=== PATIENT | male | born 1950 | race Caucasian/White ===

== ENCOUNTER 2020-07-13 15:14 | Emergency (ER) | payer OTHER, SELFPAY ==
[~2020-07-13] VITALS: Ht 182.9 cm; Wt 95.3 kg
[2020-07-13 15:58] VITALS: BP 99/61; Ht 182.9 cm; Wt 95.3 kg
== END 2020-07-13 17:31 | disposition left against medical advice (07) ==
LOC: ED 15:14
DX: U07.1 COVID-19 (principal); J12.89 Other viral pneumonia
CPT/HCPCS: 83880; 85378; 87804